=== PATIENT | male | born 1985 | race Caucasian/White ===

== ENCOUNTER 2021-12-15 16:02 | Emergency (ER) | payer OTHER ==
[~2021-12-15] VITALS: Ht 175.3 cm; Wt 63.5 kg
[2021-12-15] MEDS ORDERED: BIKTARVY 30-121 EACH (17:10)
== END 2021-12-15 17:20 | disposition home or self-care (01) ==
LOC: ER 16:02
DX: L25.9 Unspecified contact dermatitis, unspecified cause (principal); Z91.09 Other allergy status, other than to drugs and biological substances; Z21 Asymptomatic human immunodeficiency virus [HIV] infection status; Z79.899 Other long term (current) drug therapy
CPT/HCPCS: 99282

== ENCOUNTER → 2022-05-09 | Outpatient (CLI) | payer OTHER ==
[~2022-05-09] MED LIST: BIKTARVY 30-121 EACH
[2022-05-13 11:13] LABS: HSV-1 DNA Negative (Negative); HSV-2 DNA Negative (Negative)
== END | disposition home or self-care (01) ==
LOC: LAB SHORT 12:31
PROVIDERS: Emergency Medicine
DX: B00.9 Herpesviral infection, unspecified (principal)
CPT/HCPCS: 87529